=== PATIENT | female | born 1985 | race Caucasian/White ===

== ENCOUNTER 2017-11-06 09:23 | Emergency (ER) | payer MEDICAID, OTHER ==
[~2017-11-06] VITALS: Ht 170.2 cm; Wt 79.4 kg
[2017-11-06 09:38] VITALS: BP 129/62
== END 2017-11-06 10:32 | disposition home or self-care (01) ==
LOC: ER 09:24
DX: S96.911A Strain of unspecified muscle and tendon at ankle and foot level, right foot, initial encounter (principal); Z56.0 Unemployment, unspecified; W18.30XA Fall on same level, unspecified, initial encounter; Y93.89 Activity, other specified; Y92.89 Other specified places as the place of occurrence of the external cause; Y99.8 Other external cause status
CPT/HCPCS: 99284